=== PATIENT | female | born 1970 | race Two or more races ===

== ENCOUNTER 2017-02-15 13:24 | Emergency (ER) | payer BC, OTHER ==
[2017-02-15] MEDS ORDERED: HYDROMORPHONE HCL 1 MG/ML SYRINGE ONE (14:03)
[2017-02-15] MEDS ORDERED: SODIUM CHLORIDE 0.9% 1,000 ML ONE (14:03)
[2017-02-15] MEDS ORDERED: ONDANSETRON 4 MG/2ML 2 ML VIAL ONE (14:03)
[2017-02-15 14:11] LABS: ABSOLUTE NEUTROPHIL COUNT 4.2 K/mm3 (1.8-7.7); BASO % 0.4 % (0.2-1.0); EOS # 0.1 (0.0-0.5); HEMATOCRIT 38.2 % (37.0-47.0); IMM NEUT% 0.3 % (0-1); LYMPH # 2.2 (1.0-4.8); LYMPH % 31.5 % (15-45); MEAN CELL VOLUME 90.3 fl (81.0-99.0); MEAN CORPUSCULAR HEMOGLOBIN 30.7 pg (27.0-31.0); MEAN PLATELET VOLUME 11.3 fl (7.4-10.4); MONO # 0.4 (0.0-0.8); MONO % 6.1 % (4-12); NEUT % 60.7 % (43-75); PLATELET COUNT 208 K/mm3 (130-400); RED CELL DISTRIBUTION WIDTH 13.3 % (11.5-14.5)
[2017-02-15 14:23] LABS: ALB/GLOB RATIO 1.3 (>1.0); ALBUMIN 4.2 gm/dL (3.5-5.7); CALCIUM 9.3 mg/dL (8.6-10.3)
[2017-02-15 15:12] LABS: PH,URINE 6.5 (5.0-8.0); SPECIFIC GRAVITY 1.015 (1.001-1.030); URINE BILIRUBIN NEGATIVE (NEGATIVE); URINE BLOOD NEGATIVE (NEGATIVE); URINE GLUCOSE (UA) NEGATIVE (NEGATIVE); URINE LEUKOCYTE ESTERASE TRACE (NEGATIVE); URINE NITRITE NEGATIVE (NEGATIVE); URINE PROTEIN NEGATIVE (NEGATIVE); URINE UROBILINOGEN NORMAL (0-1 mg/dl)
[2017-02-15 15:18] LABS: URINE APPEARANCE CLEAR; URINE COLOR YELLOW
[2017-02-15 15:24] LABS: AMPHETAMINES/METHAMPHETAMINES NEGATIVE (NEGATIVE); COCAINE NEGATIVE (NEGATIVE); MARIJUANA NEGATIVE (NEGATIVE); METHADONE NEGATIVE (NEGATIVE); OPIATES POSITIVE (NEGATIVE); TRICYCLIC ANTIDEPRESSANTS NEGATIVE (NEGATIVE)
[2017-02-15 15:29] LABS: URINE RBC RARE /hpf
[2017-02-15 15:30] LABS: URINE BACTERIA TRACE; URINE WBC RARE /hpf
--- NOTE | 2017-02-15 15:36 | US ---
ABDOMINAL-COMPLETE: 02/15/2017 2:13 PM CLINICAL HISTORY: History of pancreatitis, cirrhosis and ascites. Right upper quadrant pain. STUDY: Complete ultrasound of abdomen. COMPARISON: 07/06/2016 abdominal ultrasound. 08/27/2016 CT abdomen pelvis. MRCP 08/29/2016. FINDINGS: Liver: Normal hepatopedal flow Size: Normal. Echogenicity: Hyperechoic consistent with hepatic steatosis. Other causes are possible and correlation is recommended. Heterogenous contour: Smooth. Mass: None. Bile ducts: Intrahepatic and extrahepatic bile ducts not dilated with common bile duct measuring 6 mm Gallbladder: Normal. Pancreas: Head and body appear normal; tail obscured by bowel gas. Pancreas duct is top normal measuring 4 mm at the level of the pancreas head. Spleen: Normal. 10.1 cm. Kidneys: No pelvicalyceal dilatation. Right kidney measuring 10.9 cm in length; left kidney measuring 9.9 cm in length. Aorta & Inferior vena cava: Visualized portions appear normal. Ascites: None. IMPRESSION: Nonvisualization of the lesion identified on prior CT and MRI. Follow-up cross-sectional imaging would be recommended if there is further clinical concern for this lesion. Probable diffuse fatty infiltration to the liver without focal lesion. Prominence to the pancreatic duct and slight dilation of the common bile duct for patient of this age. ERCP could be helpful in further assessment as clinically warranted. Findings were called to Dr. Carlson at approximately 1533 hours on 02/15/2017.
== END 2017-02-15 16:19 | disposition home or self-care (01) ==
LOC: ED 13:24
DX: R10.9 Unspecified abdominal pain (principal); R11.0 Nausea; K74.60 Unspecified cirrhosis of liver; F17.210 Nicotine dependence, cigarettes, uncomplicated
CPT/HCPCS: 83690; 84703; 85025; 80305; 80053; 81001; 76700; 96375; 99284 ×2; 96374; J1170; J2405; J7030